=== PATIENT | male | born 1955 | race Caucasian/White ===

== ENCOUNTER 2023-03-15 09:10 | Inpatient (IN) | payer OTHER ==
[2023-03-15] VITALS (13 sets, daily range): BP systolic 128–160; BP diastolic 42–100
[~2023-03-15] VITALS: Ht 193 cm; Wt 134.5 kg
[2023-03-15 09:48] LABS: BASOPHILS ABSOLUTE AUTO 0.05 K/mm3 (0.00-0.23); BASOPHILS PERCENT AUTO 0 % (0-2); EOSINOPHILS ABSOLUTE AUTO 0.18 K/mm3 (0.00-0.68); EOSINOPHILS PERCENT AUTO 1 % (0-6); Hematocrit 32.7 % (37.0-53.0); Hemoglobin 9.9 g/dL (13.5-17.5); IMMATURE GRAN ABSOLUTE AUTO 0.08 K/mm3 (0.00-0.10); IMMATURE GRAN PERCENT AUTO 0 % (0-1); LYMPHOCYTES ABSOLUTE AUTO 0.83 K/mm3 (0.84-5.20); LYMPHOCYTES PERCENT AUTO 5 % (21-46); MONOCYTES ABSOLUTE AUTO 0.96 K/mm3 (0.16-1.47); MONOCYTES PERCENT AUTO 5 % (4-13); Mean Corpuscular HGB 22.3 pg (26.0-34.0); Mean Corpuscular HGB Conc 30.3 g/dL (31.5-36.5); Mean Corpuscular Volume 74 fL (80-100); Mean Platelet Volume 9.7 fL (9.1-12.4); NEUTROPHILS ABSOLUTE AUTO 15.98 K/mm3 (1.96-9.15); NEUTROPHILS PERCENT AUTO 88 % (41-73); Platelet Count 289 K/mm3 (150-400); RDW Coefficient Variation 19.1 % (11.7-14.2); RDW Standard Deviation 50.4 fL (35.1-46.3); Red Blood Cell Count 4.44 M/mm3 (4.30-5.90); White Blood Cell Count 18.08 K/mm3 (4.00-11.30)
[2023-03-15 10:17] LABS: Magnesium, Blood 1.6 mg/dL (1.6-2.4)
[2023-03-15 10:19] LABS: Albumin, Blood 3.4 g/dL (3.4-5.0); Albumin/Globulin Ratio 0.7 (0.8-1.8); Bilirubin, Total 0.2 mg/dL (0.1-1.0); Bun/Creatinine Ratio 29.4 (12.0-20.0); Calcium, Blood 8.9 mg/dL (8.5-10.1); Creatinine, Blood 1.09 mg/dL (0.60-1.20); Globulin, Blood 5.1 g/dL (2.2-4.0); Potassium, Blood 4.4 mmol/L (3.5-5.5); Total Protein, Blood 8.5 g/dL (6.4-8.2)
[2023-03-15 10:46] LABS: Source, Urine Clean Catch
[2023-03-15 10:49] LABS: Appearance, Urine Clear (Clear); Bilirubin, Urine Neg (Neg); Blood, Urine 1+ (Neg); Color, Urine Yellow (P-Yellow); Glucose Qualitative, Urine 2+ (Neg); Ketones, Urine Neg (Neg); Leukocyte Esterase, Urine Neg (Neg); Nitrite, Urine Neg (Neg); Protein, Urine 3+ (Neg); Urobilinogen, Urine NORM (Normal)
[2023-03-15 11:05] LABS: Bacteria Many /hpf; Squamous Epithelial Cells Not Seen /hpf (Few)
[2023-03-15] MEDS ORDERED: BACITRACIN ZIN1 EAC1 (17:50)
[2023-03-15] MEDS ORDERED: ATOR40TA PO (17:50)
[2023-03-15] MEDS ORDERED: ASPI81CH PO (17:50)
[2023-03-15] MEDS ORDERED: BISA5EC PO (17:51)
[2023-03-15] MEDS ORDERED: BISA10S PR (17:51)
[2023-03-15] MEDS ORDERED: CARV6.25 PO (17:53)
[2023-03-15] MEDS ORDERED: FURO20 PO (17:54)
[2023-03-15] MEDS ORDERED: GLIM4 PO (17:54)
[2023-03-15] MEDS ORDERED: DICLOFENAC SOD100 GM TP (17:54)
[2023-03-15] MEDS ORDERED: NOVOLIN 70100 UNIT/4 SC (17:56)
[2023-03-15] MEDS ORDERED: LACT PO (17:57)
[2023-03-15] MEDS ORDERED: LOSA50 PO (17:57)
[2023-03-15] MEDS ORDERED: MELA3 PO (17:57)
[2023-03-15] MEDS ORDERED: NARCAN4 M1 NS (17:58)
[2023-03-15] MEDS ORDERED: METF500 PO (17:58)
[2023-03-15] MEDS ORDERED: OXYC5 PO (17:58)
[2023-03-15] MEDS ORDERED: MIRALAX17 GM PO (17:58)
[2023-03-15] MEDS ORDERED: PREG150 PO (17:59)
[2023-03-15] MEDS ORDERED: SERT50 PO (18:00)
[2023-03-15] MEDS ORDERED: SENNA LAXATIVE8.6 MG PO (18:00)
[2023-03-15] MEDS ORDERED: SHINGRIX (18:01)
[2023-03-15] MEDS ORDERED: ALDACTONE25 MG PO (18:01)
[2023-03-15] MEDS ORDERED: TRAM50 PO (18:02)
[2023-03-15] MEDS ORDERED: ACET500 PO (18:02)
[2023-03-15] MEDS ORDERED: ALBU90OI INH (18:03)
[2023-03-16] VITALS (14 sets, daily range): BP systolic 88–134; BP diastolic 61–76
[2023-03-16 03:39] LABS: Hematocrit 29.8 % (37.0-53.0); Hemoglobin 8.8 g/dL (13.5-17.5); Mean Corpuscular HGB Conc 29.5 g/dL (31.5-36.5); Mean Corpuscular Volume 75 fL (80-100); Mean Platelet Volume 9.8 fL (9.1-12.4); Platelet Count 240 K/mm3 (150-400); RDW Coefficient Variation 19.3 % (11.7-14.2); RDW Standard Deviation 51.9 fL (35.1-46.3); White Blood Cell Count 23.73 K/mm3 (4.00-11.30)
[2023-03-16 04:16] LABS: Albumin, Blood 2.8 g/dL (3.4-5.0); Albumin/Globulin Ratio 0.6 (0.8-1.8); Bilirubin, Total 0.3 mg/dL (0.1-1.0); Calcium, Blood 8.1 mg/dL (8.5-10.1); Creatinine, Blood 1.32 mg/dL (0.60-1.20); Globulin, Blood 4.4 g/dL (2.2-4.0); Potassium, Blood 4.7 mmol/L (3.5-5.5); Total Protein, Blood 7.2 g/dL (6.4-8.2)
--- NOTE | 2023-03-16 06:29 | NUR ---
SHIFT SUMMARY A/Ox3-4 AND COOPERATIVE WITH CARE. ANSWERS QUESTIONS APPROPRIATELY AND ABLE TO MAKE HIS NEEDS KNOWN. CARDIAC, REMAINS IN ST-100'S WITH NO C/O CP OR PRESSURE T/O THE NIGHT. SBP HAS REMAINED STABLE T/O THE NIGHT RANGING 100-130'S. RESPIRATORY, MAINTAINS SPO2 >90% ON 1-2L VIA NC. DENIES SOB OR DYSPNEA WHILE AT REST. SOME INCREASED WORK OF BREATHING NOTED LAYING FLAT OR WITH EXERTION WHEN TURNING IN THE BED. GI/, CONTINUES TO BE INCONTINENT OF URINE. CONDOM CATH IN PLACE DRAINING YELLOW URINE TO GRAVITY. PT UNDERWENT I&D PROCEDURE ON RIGHT LOWER EXTREMITY STUMP. WOUND VAC IN PLACE WITH BLOODY OUTPUT. PT SPIKED 103.2 FEVER WHEN ARRIVING BACK TO PCU FROM SURGERY. FEVER HAS SINCE BEEN CONTROLLED VIA EMAR AND WITH COOLING THERAPY TO 99.9 (ORAL). ASSESSED PT FOR RISKS OF ANY IGNITION SOURCES WELL BEHAVIORS FOR INCREASED RISKS OF FIRE DANGER. PT EDUCATED ON COMMON SOURCES OF IGNITION WELL NEED TO KEEP A SAFE ENVIRONMENT. PT VOICED UNDERSTANDING. NO NEW ORDERS AT THIS TIME, WILL REPORT TO ONCOMING RNLiu DIAZ OF THIS NOTE
--- NOTE | 2023-03-16 10:45 | NUR ---
FIRST DOSE OF INFECT WAS ADMNISTERED. PT DENIES SOB, DIZZINESS, CHEST PAIN/PRESSURE, TROUBLE SWALLOWING, FACIAL/TONGUE SWELLING. PT TOLERATED WELL. PLAN TO START NEXT BAD IN HR PER EMAR.
--- NOTE | 2023-03-16 14:23 | NUR ---
PT A&OX4, COOPERATES WITH CARE, ABLE TO MAKE NEEDS KNOWN, ANSWERS QUESTIONS APPROPRIATELY. PT IS SLEEPY TODAY BUT EASILY AROUSED. PT ON 2L NC MAINTAINING 02 SATURATION ABOVE 93%, PT DENIES SOB. HR 80'S-110'S, BP STABLE, PT DENIES CHEST PAIN/PRESSURE. CONDOM CATH IN PLACE, PATENT DRAINING WITH GRAVITY. PT HAS HX OF R BKA & HAD I&D PERFORMED YESTERDAY DUE TO INFECTION, WOUND VAC IN PLACE. PTS ABDOMEN IS EXTREMELY DISTENDED AND FIRM, PT STATED THAT IS NORMAL FOR HIM. DURING REPORT DIRECTOR MATERNAL CHILD STATED PT HAD FEVER FOR THE MAJORITY OF LAST NIGHT. AROUND 1230 THIS AFTERNOON PT'S TEMPERATURE WENT UP TO 99.6, MEDICATED PER EMAR, AND TEMPERATURE CAME DOWN TO 98.0. PT COMPLAINED OF 7/10 PAIN AT BEGINNING OF SHIFT, MEDICATED PER EMAR, PT HAS BEEN SLEEPING THE MAJORITY OF THE DAY. PT RESTING IN BED, CALL LIGHT WITHIN REACH.
--- NOTE | 2023-03-16 16:04 | NUR ---
Pt states that he can't find his phone. He described it as a "crap phone". When I asked what he meant, he said it is a flip phone, "pay as you go", black in color. Room, closet, belongings and pt bed were searched to find it. His confirms that she spoke with him on his cell phone this morning around 0830 or 0900. Call to the dietary office to ask if phone was found. No answer, so message was left.
--- NOTE | 2023-03-16 18:07 | NUR ---
SHIFT SUMMARY NO ACUTE CHANGES, SEE PREVIOUS NOTE. PT JUST FINISHED EATING 100% OF HIS DINNER. PT CONTINUES TO MAINTAIN 02 SATURATION ABOVE 92% ON 2L NC, CONTINUES TO DENY SOB. PT CONTINUES TO BE A&OX4. BP STABLE, HR SR 80'S, PT CONTINUES TO DENY CHEST PAIN/PRESSURE. CONDOM CATH PATENT AND EMPTYING TO GRAVITY. PT SPOKE WITH HIS ON THE PHONE EARLIER. PT IS RESTING IN BED WITH CALL LIGHT WITHIN REACH.
[2023-03-17 01:48] VITALS: BP 113/69
--- NOTE | 2023-03-17 02:00 | NUR ---
PHYSICIAN COMMUNICATION CONTACTED [facility] PHYSICIAN, DR BALDERAS, NO NOTIFY HIM THAT THE PATIENT JUST HAD TWO BACK TO BACK RUNS OF SVT TOTALLING ABOUT 3 MINUTES BETWEEN THEM. PATIENT ASYMPTOMATIC WITH NO CHANGES IN VITAL SIGNS. ALSO INFORMED HIM THAT THE PATIENT WAS REQUESTING SOMETHING TO HELP HIM SLEEP. DR BALDERAS ORDERED 6 MG MELATONIN.
[2023-03-17 03:36] LABS: BASOPHILS ABSOLUTE AUTO 0.04 K/mm3 (0.00-0.23); BASOPHILS PERCENT AUTO 0 % (0-2); EOSINOPHILS ABSOLUTE AUTO 0.02 K/mm3 (0.00-0.68); EOSINOPHILS PERCENT AUTO 0 % (0-6); Hemoglobin 7.6 g/dL (13.5-17.5); IMMATURE GRAN ABSOLUTE AUTO 0.16 K/mm3 (0.00-0.10); IMMATURE GRAN PERCENT AUTO 1 % (0-1); LYMPHOCYTES ABSOLUTE AUTO 1.22 K/mm3 (0.84-5.20); LYMPHOCYTES PERCENT AUTO 6 % (21-46); MONOCYTES ABSOLUTE AUTO 1.55 K/mm3 (0.16-1.47); MONOCYTES PERCENT AUTO 8 % (4-13); Mean Corpuscular HGB 22.4 pg (26.0-34.0); Mean Corpuscular HGB Conc 30.4 g/dL (31.5-36.5); Mean Corpuscular Volume 74 fL (80-100); Mean Platelet Volume 9.7 fL (9.1-12.4); NEUTROPHILS ABSOLUTE AUTO 16.19 K/mm3 (1.96-9.15); NEUTROPHILS PERCENT AUTO 84 % (41-73); Platelet Count 195 K/mm3 (150-400); RDW Coefficient Variation 19.6 % (11.7-14.2); RDW Standard Deviation 52.5 fL (35.1-46.3); White Blood Cell Count 19.18 K/mm3 (4.00-11.30)
[2023-03-17 03:52] VITALS: BP 108/72
[2023-03-17 04:01] LABS: Magnesium, Blood 2.1 mg/dL (1.6-2.4)
[2023-03-17 04:05] LABS: Anion Gap 5 mmol/L (6-16); Blood Urea Nitrogen 39 mg/dL (8-24); Bun/Creatinine Ratio 26.7 (12.0-20.0); CO2, Blood 24 mmol/L (21-32); Calcium, Blood 7.5 mg/dL (8.5-10.1); Chloride, Blood 106 mmol/L (98-108); Creatinine, Blood 1.46 mg/dL (0.60-1.20); Glomerular Filtration Rate 52 (60-); Glucose, Blood 337 mg/dL (70-99); Potassium, Blood 4.5 mmol/L (3.5-5.5); Sodium, Blood 135 mmol/L (136-145); Vancomycin, Trough 20.3 ug/mL (5.0-10.0)
--- NOTE | 2023-03-17 06:44 | NUR ---
SHIFT SUMMARY PATIENT ALERT AND ORIENTED X4. CONTINUES TO GO IN AND OUT OF SUSTAINED SVT. OBTAINED AN EKG PER DR BALDERAS AND RELAYED THAT IT READ JUNCTIONAL TACHYCARDIA IN THE 130'S. PATIENT CONTINUES TO BE ASYMPTOMATIC, BLOOD PRESSURE STABLE. LONGEST RUN OF SVT THIS MORNING LASTED ABOUT 20 MINUTES. WILL CONTINUE TO MONITOR. CALL LIGHT WITHIN REACH.
[2023-03-17 07:37] VITALS: BP 112/79
--- NOTE | 2023-03-17 07:49 | NUR ---
Dr. Richter was here to see the patient. Yesterday's bumped WBC unsuprising he said due to the surgery 1 day prior. Today it is decreased, but ongoing monitoring to see if an AKA surgery will be indicated later. He will put in the orders for the director of catering to change the wound vac dressing tomorrow. CBG better controlled today, less than 300 this morning. No c/o pain except for headache this morning; he was given Tylenol.
--- NOTE | 2023-03-17 07:53 | NUR ---
PT AWAKE, ALERT, AND ORIENTED X 4 THIS MORNING. PT STATED 6/10 PAIN, MEDICATED PER EMAR. BP STABLE, PT DENIES CHEST PAIN/PRESSURE, HR 80'S SR. PT ON 3L NC MAINTAINING O2 SAT ABOVE 92%, PT DENIES SOB. GONZALEZ CATHETER IN PLACE DRAINING YELLOW URINE TO GRAVIY. IN TO SPEAK WITH PT REGARDING I&D SITE, STATED WOUND VAC WILL STAY IN PLACE TODAY, GET CHANGED TMR, THEN EVERY OTHER DAY AFTER THAT. PT SPOKE WITH HIS ON THE PHONE THIS MORNING. PT EATING BREAKFAST AND WATCHING TV, CALL LIGHT WITHIN REACH.
[2023-03-17 11:16] VITALS: BP 96/67
[2023-03-17 15:21] VITALS: BP 117/72
--- NOTE | 2023-03-17 18:22 | NUR ---
SHIFT SUMMARY PT WORKED WITH PHYSICAL THERAPY TODAY AND HAS BEEN UP IN CHAIR UNTIL 1829. 1 PERSON ASSIST TO AND FROM CHAIR, 2-3 PERSON ASSIST TO COMMODE PER PHYSICAL THERAPY. PT TRANSFERRED WELL FROM BED TO CHAIR AT 1829, PT WILL TELL YOU HOW HE NEEDS THE CHAIR POSITIONED. PT IS ON 3L NC MAINTAINING 02 SATURATION ABOVE 93%, PT DENIES SOB. HR 70'S-80'S, BP STABLE, PT DENIES CHEST PAIN/PRESSURE. CONDOM CATH IN PLACE AND YELLOW URINE FLOWING TO GRAVITY. WOUND VAC IN PLACE AND SEROSANGUINOUS DRAINAGE DRAINING. PT RESTING IN BED, CALL LIGHT WITHIN REACH.
[2023-03-17 19:44] VITALS: BP 120/70
[2023-03-18] VITALS (8 sets, daily range): BP systolic 120–137; BP diastolic 67–87
[2023-03-18 03:43] LABS: BASOPHILS ABSOLUTE AUTO 0.04 K/mm3 (0.00-0.23); BASOPHILS PERCENT AUTO 0 % (0-2); EOSINOPHILS ABSOLUTE AUTO 0.12 K/mm3 (0.00-0.68); EOSINOPHILS PERCENT AUTO 1 % (0-6); Hematocrit 28.9 % (37.0-53.0); Hemoglobin 8.7 g/dL (13.5-17.5); IMMATURE GRAN ABSOLUTE AUTO 0.09 K/mm3 (0.00-0.10); IMMATURE GRAN PERCENT AUTO 1 % (0-1); LYMPHOCYTES ABSOLUTE AUTO 1.05 K/mm3 (0.84-5.20); LYMPHOCYTES PERCENT AUTO 7 % (21-46); MONOCYTES ABSOLUTE AUTO 1.28 K/mm3 (0.16-1.47); MONOCYTES PERCENT AUTO 9 % (4-13); Mean Corpuscular HGB 22.3 pg (26.0-34.0); Mean Corpuscular HGB Conc 30.1 g/dL (31.5-36.5); Mean Corpuscular Volume 74 fL (80-100); Mean Platelet Volume 10.4 fL (9.1-12.4); NEUTROPHILS ABSOLUTE AUTO 12.14 K/mm3 (1.96-9.15); NEUTROPHILS PERCENT AUTO 83 % (41-73); NRBC ABSOLUTE 0.02 K/mm3 (0.00-0.02); NRBC Auto 0.1 /100 WBC (0.0-0.2); Platelet Count 232 K/mm3 (150-400); RDW Coefficient Variation 19.8 % (11.7-14.2); RDW Standard Deviation 52.7 fL (35.1-46.3); White Blood Cell Count 14.72 K/mm3 (4.00-11.30)
[2023-03-18 04:31] LABS: Albumin, Blood 2.5 g/dL (3.4-5.0); Albumin/Globulin Ratio 0.5 (0.8-1.8); Bilirubin, Total 0.3 mg/dL (0.1-1.0); Bun/Creatinine Ratio 28.9 (12.0-20.0); Calcium, Blood 8.4 mg/dL (8.5-10.1); Creatinine, Blood 1.14 mg/dL (0.60-1.20); Globulin, Blood 4.9 g/dL (2.2-4.0); Magnesium, Blood 2.2 mg/dL (1.6-2.4); Potassium, Blood 4.7 mmol/L (3.5-5.5); Total Protein, Blood 7.4 g/dL (6.4-8.2)
--- NOTE | 2023-03-18 05:29 | NUR ---
SHIFT SUMMARY ASSUMED CARE OF PT AT 1900. PT IS A/OX4. HEART SOUNDS REGULAR.WHERE WERE FINE CRACKLES IN LUNG BASES. PT WENT FROM NEEDING 3L NC TO 8L HIGHFLOW. PT UNABLE TO TOLERATE HEAD UP DUE TO BACK PAIN, MEDICATED PER EMAR AND HEAT ADMINISTERED. PT HAS SOME RELIEF. PT WAS A 2P ASSIST TO BSC WITH MODERATE ASSISTANCE. PT HAD HARD BM, STILL COMPLAINING OF EXTENDED ABD BUT BETTER AFTER BM. PT R BKA WAS DRESSED WITH NO DRAINAGE. PT HAS SMALL HEALING WOULD ON L SECOND TOE THAT HE STATES HE HAS HAD FOR A WHILE. PT C/O PAIN AT BOTTOM OF CHEST SCAR FROM PREVIOUS SURGERY.
--- NOTE | 2023-03-18 09:52 | NUR ---
Call from the OR staff to let know that the pt will be going for an AKA tomorrow at [address] Hogan. Request made for the surgeon to please come and discuss this plan with the patient. The pt is upset because he has not had this discussion yet; he was thinking that there would only be conservative management, and only possibly an AKA at some time in the future.
--- NOTE | 2023-03-18 10:23 | NUR ---
PT ALERT AND ORIENTED X 4, ABLE TO MAKE NEEDS KNOWN, CONFUSED AT TIMES. PT STATED THIS MORNING THAT HE DIDN'T SLEEP WELL LAST NIGHT AND WOULD LIKE TO GET SOME REST TODAY. MD WAS IN TO SPEAK WITH PATIENT. YESTERDAY SURGEON DISCUSSED WITH PT POSSIBILITY OF ABOVE THE KNEE AMPUTATION AND PROS AND CONS, PT STATED UNDERSTNDING. AT THIS TIME, PT IS DUE TO HAVE AN ABOVE THE KNEE AMPUTATION TOMORROW. IT HAS BEEN REQUESTED THAT SURGEON COME SPEAK WITH PATIENT. LOADER STATED THEY HAD TO TITRATE PTS OXYGEN USE UP TO 8L HIGH FLOW NC TO MAINTAIN O2 SATURATION ABOVE 93%, PT STILL ON SAID SETTINGS AND TOLERATING WELL MAINTAINING O2 SATURATION ABOVE 93%. WOUND VAC IN PLACE AND SETTINGS PER ORDER, SEROSANGUINEOUS DRAINAGE. WOUND CARE ORDER PLACED. CONDOM CATH IN PLACE AND DRAINING YELLOW URINE WITH GRAVITY. IV TO R UPPER ARM & L FOREARM PATENT, FLUSHED AND SALINE LOCKED WHEN NOT INFUSING. PT HAS SPOKE WITH HIS A FEW TIMES ON THE PHONE TODAY. PHYSICAL THERAPY WAS BY TO WORK WITH PT, AND PT REFUSED. PT RESTING IN BED, CALL LIGHT WITHIN REACH.
--- NOTE | 2023-03-18 10:34 | NUR ---
PT STATED CONCERNS REGARDING [facility]IENT THERE BEFORE SENT HERE VIA AMBULANCE. I CALLED THE AOD AT THE [place], HIS NAME IS CHIQUITA, AND HE GAVE ME A PHONE NUMBER AND EXTENSION THAT PT CAN CALL TO SPEAK WITH A CHARGE NURSE ON THE UNIT.
--- NOTE | 2023-03-18 11:51 | NUR ---
SURGEON WAS BY TO SPEAK WITH PT REGARDING ABOVE THE KNEE AMPUTATION TOMORROW. PT IN HIS ROOM HAVING ECHO PERFORMED NOW.
--- NOTE | 2023-03-18 15:14 | NUR ---
APPROXIMATELY 1430 PT STARTED TO HAVE 7/10 ABDOMINAL PN, NAUSEA, & AUDIBLE WHEEZING. PT WAS MEDICATED PER EMAR. HAD TO INCREASE OXYGEN TO 12L TO MAINTAIN O2 SATURATION ABOVE 92%, FINE CRACKLES AUSCULTATED IN BASES OF LUNGS. GOT PT UP TO BEDSIDE COMMODE, HE PASSED GAS AND STATED HIS ABDOMINAL NAUSEA AND PAIN DECREASED TO 5/10. PT IN RECLINER, CONDOM CATHETER REPLACED, 900ML OUTPUT. CALL PLACED TO MD, ORDERED 1V CHEST XRAY, 40MG IV LASIX NOW, AND 40MG IV LASIX DAILY, PT MEDICATED PER ORDER. WAITING FOR PT TO GET CHEST XRAY. PT STATED HE DOES NOT HAVE ANY SOB, CHEST PAIN/PRESSURE. PT IN RECLINER WATCHING TV, CALL LIGHT WITHIN REACH.
--- NOTE | 2023-03-18 17:18 | NUR ---
SHIFT SUMMARY SEE PREVIOUS NOTES. PT NOW ON 3L HIGH FLOW NC MAINTAINING O2 SATURATION ABOVE 92%. PT DENIES SOB, NO AUDIBLE WHEEZES. PTS BP IS STABLE, PT DENIES CHEST PAIN/PRESSURE, HR 70S-80S. PT CONTINUES TO BE ALERT AND ORIENTED X 4. PT HAD BOWEL MOVEMENT AFTER SUPPOSITORY WAS GIVEN. PT STATED ABDOMINAL PAIN IS DOWN TO 3/10. PT STATED HE FEELS A LOT BETTER. EARLIER TODAY [facility], PER PT REQUEST. PT SAID THEY TOLD HIM THEY WOULD LOCK UP HIS WALLET AND KEEP THE REST OF HIS BELONGINGS SAFE. PT STILL IN RECLINER WATCHING TV. AFTER LASIX WAS ADMINISTERED PT SO FAR HAS HAD 400 OUT PUT ALONG WITH UNMEASURED SMALL AMOUNT ON THE FLOOR. NEW CONDOM CATHETER PLACED, AND YELLOW URINE FLOWING WITH GRAVITY. PT IN RECLINER, WATCHING TV, EATING DINNER, CALL LIGHT WITHIN REACH.
[2023-03-19] VITALS (19 sets, daily range): BP systolic 94–165; BP diastolic 74–110
--- NOTE | 2023-03-19 02:26 | NUR ---
UPDATE THIS RN NOTIFIED BY [employer] THAT PT O2 SATS IN THE 70'S. THIS RN TO PT ROOM. PT SLEEPING WITH HOB AT 30. PT HAD MULTIPLE APNEIC EPISODES WHILE THIS RN WAS IN ROOM, SATS DOWN TO 60'S. O2 INCREASED TO 5L AND PT AWAKEN BY THIS RN TO INSTRUCT PT TO TAKE DEEP BREATHS. SATS INCREASED TO 90'S AFTER A FEW BREATHS. PT REMAINED ON 5L.
[2023-03-19 04:12] LABS: Hematocrit 26.7 % (37.0-53.0); Hemoglobin 7.9 g/dL (13.5-17.5); Mean Corpuscular HGB 21.9 pg (26.0-34.0); Mean Corpuscular HGB Conc 29.6 g/dL (31.5-36.5); Mean Corpuscular Volume 74 fL (80-100); Mean Platelet Volume 10.3 fL (9.1-12.4); NRBC ABSOLUTE 0.05 K/mm3 (0.00-0.02); NRBC Auto 0.4 /100 WBC (0.0-0.2); Platelet Count 230 K/mm3 (150-400); RDW Coefficient Variation 19.8 % (11.7-14.2); RDW Standard Deviation 52.7 fL (35.1-46.3); White Blood Cell Count 11.29 K/mm3 (4.00-11.30)
[2023-03-19 04:39] LABS: Bun/Creatinine Ratio 25.5 (12.0-20.0); Calcium, Blood 8.1 mg/dL (8.5-10.1); Creatinine, Blood 1.1 mg/dL (0.60-1.20); Potassium, Blood 4.3 mmol/L (3.5-5.5)
[2023-03-19 04:55] LABS: BAND PERCENT MAN 12 % (0-8); BASOPHILS PERCENT MAN 0 % (0-2); EOSINOPHILS ABSOLUTE MAN 0.22 K/mm3 (0.00-0.68); EOSINOPHILS PERCENT MAN 2 % (0-6); LYMPHOCYTES ABSOLUTE MAN 1.12 K/mm3 (0.84-5.20); LYMPHOCYTES PERCENT MAN 10 % (21-46); MONOCYTES ABSOLUTE MAN 1.12 K/mm3 (0.16-1.47); MONOCYTES PERCENT MAN 10 % (4-13); SEG NEUTROPHILS PERCENT MAN 66 % (41-73); TOTAL CELLS COUNTED 100
--- NOTE | 2023-03-19 05:01 | NUR ---
SHIFT SUMMARY PT A/OX4 AND COOPERATIVE OF MOST CARE. PT REFUSING SOME TURNS IN BED, STATES "IT HURTS MY HIPS." VSS THROUGHOUT SHIFT WITH O2 SATS IN THE 90'S ON 3L NC. PT HAD APNEIC EPISODES WHILE SLEEPING, SATS DROPPED TO 70-80'S, SEE PREVIOUS NOTES. NO REPORT OF CHEST PAIN/PRESSURE THROUGHOUT SHIFT. NO REPORT OF SPB/DYSPNEA THROUGHOUT SHIFT. CONDOM CATH IN PLACE AT BEGINNING OF SHIFT. CONDOM CATH REPLACED DUE TO LEAKING. PT NPO AT MIDNIGHT. WOUND VAC REAMINS IN PLACE OF RIGHT BKA. PT RESTED FOR MOST OF SHIFT.
--- NOTE | 2023-03-19 08:26 | NUR ---
UPDATE PT TAKEN TO DAY SURGERY. WILL AWAIT RETURN
--- NOTE | 2023-03-19 12:00 | NUR ---
UPDATE PT RETURNED TO ROOM FROM PACU. PT AWAKE AND ALERT. PT COMPLAINING OF PAIN TO RIGHT AKA AT 8/10. PT MEDICATED PER EMAR. PT DIAPHORETIC AND BED BATH PROVIDED. CONDOM CATH IN PLACE. PT REPOSITIONED FOR COMFORT. PT'S DAUGHTER CALLED AND UPDATED HE REQUESTED. VS STABLE. PT ON 3L NC AT THIS TIME. WILL CONTINUE TO MONITOR CLOSELY
--- NOTE | 2023-03-19 16:57 | NUR ---
UPDATE DR. CARREON CALLED AND UPDATED ON POSITIVE BLOOD CULTURES AND BLOOD SUGAR OF 409. ORDERS TO REDRAW BLOOD SUGAR IN 1 HOUR.
--- NOTE | 2023-03-19 17:56 | NUR ---
SHIFT SUMMARY PT REMAINS ALERT AND ORIENTED. VS STABLE. PT CONTINUES TO COMPLAIN OF PAIN TO RIGHT AKA. ICE APPLIED AND ELEVATED ON PILLOW. PT MEDICATED PER ORDERS. PT REPOSITIONED Q2H. CONDOM CATH STILL IN PLACE. WILL CONTINUE TO MONITOR AND REPORT TO ONCOMING RN
--- NOTE | 2023-03-19 21:02 | NUR ---
CONTACTED FOR BLOOD SUGAR OF 420 AT 2056. INSTRUCTED THIS RN TO GIVE SCHEDULED DOSE OF SHORT AND LONG ACTING ALONG WITH AND ADDITIONAL 5 UNITS SHORT ACTING. RECHECK BLOOD SUGAR 1 HOUR AFTER ADMINISTERING.
[2023-03-20] VITALS (8 sets, daily range): BP systolic 128–172; BP diastolic 66–145
[2023-03-20 04:14] LABS: BASOPHILS ABSOLUTE AUTO 0.03 K/mm3 (0.00-0.23); BASOPHILS PERCENT AUTO 0 % (0-2); EOSINOPHILS ABSOLUTE AUTO 0.01 K/mm3 (0.00-0.68); EOSINOPHILS PERCENT AUTO 0 % (0-6); Hemoglobin 6.9 g/dL (13.5-17.5); IMMATURE GRAN PERCENT AUTO 4 % (0-1); LYMPHOCYTES PERCENT AUTO 8 % (21-46); MONOCYTES ABSOLUTE AUTO 0.93 K/mm3 (0.16-1.47); MONOCYTES PERCENT AUTO 8 % (4-13); Mean Corpuscular HGB 22.3 pg (26.0-34.0); Mean Corpuscular Volume 74 fL (80-100); Mean Platelet Volume 10.6 fL (9.1-12.4); NEUTROPHILS ABSOLUTE AUTO 9.17 K/mm3 (1.96-9.15); NEUTROPHILS PERCENT AUTO 79 % (41-73); NRBC ABSOLUTE 0.15 K/mm3 (0.00-0.02); NRBC Auto 1.3 /100 WBC (0.0-0.2); Platelet Count 269 K/mm3 (150-400); RDW Standard Deviation 53.1 fL (35.1-46.3); White Blood Cell Count 11.54 K/mm3 (4.00-11.30)
[2023-03-20 04:33] LABS: C-REACTIVE PROTEIN, EXT RANGE 8.62 mg/dL (0.000-0.300); Calcium, Blood 8.2 mg/dL (8.5-10.1); Creatinine, Blood 1.1 mg/dL (0.60-1.20); Magnesium, Blood 2.2 mg/dL (1.6-2.4); Potassium, Blood 5.2 mmol/L (3.5-5.5)
--- NOTE | 2023-03-20 05:13 | NUR ---
SHIFT SUMMARY PT A/OX 4 AND COOPERATIVE OF CARE. PT ABLE TO EXPRESS NEEDS AND CALLS APPROPIATE. VSS THROUGHOUT SHIFT WITH O2 SATS IN THE 90'S ON 3L NC. NO REPORT OF CHEST PAIN/PRESSURE THROUGHOUT SHIFT. NO REPORT OF SOB THROUGHOUT SHIFT. PT REPORTED PAIN TO RIGHT LOWER STUMP, PT POST RIGHT AKA. PT CBG'S ELVEATED DURING NOC SHIFT, ALERTED OF SUGARS IN THE 300-400. ADDITIONAL INSULIN ORDERED AND GIVEN DURING NIGHT. PT HGB AT 6.9 THIS MORNING, NOTIFIED. 1 UNIT PRBC ORDERED.
[2023-03-20 17:36] LABS: Hematocrit 24.5 % (37.0-53.0); Hemoglobin 7.7 g/dL (13.5-17.5)
--- NOTE | 2023-03-20 17:38 | NUR ---
SHIFT SUMMARY PT REMAINS ALERT AND ORIENTED. BP STABLE. PT TITRATED TO ROOM AIR WHILE AWAKE, BUT DESATURATED TO 60'S WHILE ASLEEP. DR. CARREON NOTIFIED AND OVERNIGHT OXIMETRY ORDERED. CBG HAVE BEEN HIGH THIS SHIFT AND DR. CARREON HAS CHANGED INSULIN ORDERS. PT UP TO BSC THIS SHIFT. PT COMPLAINS OF PAIN TO RIGHT AKA, BUT STATES IT IS IMPROVED SINCE YESTERDAY. STUMP ELEVATED ON PILLOWS. PT REPOSITIONED Q2H AND MORE OFTEN NEEDED. ICE APPLIED REQUESTED. WILL CONTINUE TO MONITOR AND REPORT TO ONCOMING RN
[2023-03-21 05:00] VITALS: BP 129/70
[2023-03-21 07:44] LABS: Hematocrit 25.8 % (37.0-53.0); Hemoglobin 7.8 g/dL (13.5-17.5); Mean Corpuscular HGB 23.1 pg (26.0-34.0); Mean Corpuscular HGB Conc 30.2 g/dL (31.5-36.5); Mean Corpuscular Volume 76 fL (80-100); Mean Platelet Volume 10.1 fL (9.1-12.4); NRBC ABSOLUTE 0.23 K/mm3 (0.00-0.02); NRBC Auto 1.6 /100 WBC (0.0-0.2); Platelet Count 322 K/mm3 (150-400); RDW Coefficient Variation 20.3 % (11.7-14.2); RDW Standard Deviation 54.3 fL (35.1-46.3); Red Blood Cell Count 3.38 M/mm3 (4.30-5.90); White Blood Cell Count 14.83 K/mm3 (4.00-11.30)
[2023-03-21 08:09] LABS: Albumin, Blood 2.4 g/dL (3.4-5.0); Albumin/Globulin Ratio 0.5 (0.8-1.8); Bilirubin, Total 0.1 mg/dL (0.1-1.0); Bun/Creatinine Ratio 23.4 (12.0-20.0); Calcium, Blood 8.6 mg/dL (8.5-10.1); Creatinine, Blood 0.98 mg/dL (0.60-1.20); Globulin, Blood 4.5 g/dL (2.2-4.0); Total Protein, Blood 6.9 g/dL (6.4-8.2)
[2023-03-21 08:10] VITALS: BP 156/85
[2023-03-21 08:11] LABS: BAND PERCENT MAN 2 % (0-8); BASOPHILS PERCENT MAN 0 % (0-2); EOSINOPHILS ABSOLUTE MAN 0.44 K/mm3 (0.00-0.68); EOSINOPHILS PERCENT MAN 3 % (0-6); LYMPHOCYTES ABSOLUTE MAN 1.18 K/mm3 (0.84-5.20); LYMPHOCYTES PERCENT MAN 8 % (21-46); METAMYELOCYTE ABSOLUTE MAN 0.14 K/mm3 (0.00-0.00); METAMYELOCYTE PERCENT MAN 1 % (0-0); MONOCYTES ABSOLUTE MAN 0.44 K/mm3 (0.16-1.47); MONOCYTES PERCENT MAN 3 % (4-13); MYELOCYTE ABSOLUTE MAN 0.14 K/mm3 (0.00-0.00); MYELOCYTE PERCENT MAN 1 % (0-0); NEUTROPHILS ABSOLUTE MAN 12.45 K/mm3 (1.96-9.15); SEG NEUTROPHILS PERCENT MAN 82 % (41-73); TOTAL CELLS COUNTED 100
[2023-03-21 15:35] VITALS: BP 143/82
[2023-03-21 16:55] LABS: SARS-Cov-2 (COVID-19) PCR, MMC NEGATIVE (NEGATIVE)
--- NOTE | 2023-03-21 17:29 | NUR ---
SHIFT SUMMARY PT REMAINS ALERT AND ORIENTED. BP STABLE. O2 SATS REMAIN ABOVE 90% ON RA WHILE PT IS AWAKE. PT PLACED ON 3L NC WHILE SLEEPING. PT COMPLAINS OF PAIN AT TIMES AND MEDICATED PER EMAR. PT UP TO RECLINER FOR DINNER. CONDOM CATH IN PLACE FOR INCONTINENCE. [facility] WILL CONTINUE TO MONITOR AND REPORT TO ONCOMING RN
[2023-03-21 19:35] VITALS: BP 136/75
[2023-03-21 23:15] VITALS: BP 126/82
[2023-03-22 03:49] VITALS: BP 114/98
[2023-03-22 04:11] LABS: Hematocrit 25.7 % (37.0-53.0); Hemoglobin 7.9 g/dL (13.5-17.5); Mean Corpuscular HGB 23.6 pg (26.0-34.0); Mean Corpuscular HGB Conc 30.7 g/dL (31.5-36.5); Mean Corpuscular Volume 77 fL (80-100); Mean Platelet Volume 9.9 fL (9.1-12.4); NRBC ABSOLUTE 0.32 K/mm3 (0.00-0.02); NRBC Auto 2.7 /100 WBC (0.0-0.2); Platelet Count 318 K/mm3 (150-400); RDW Coefficient Variation 21.3 % (11.7-14.2); RDW Standard Deviation 54.6 fL (35.1-46.3); Red Blood Cell Count 3.35 M/mm3 (4.30-5.90); White Blood Cell Count 11.69 K/mm3 (4.00-11.30)
[2023-03-22 04:38] LABS: Bun/Creatinine Ratio 25.1 (12.0-20.0); Calcium, Blood 8.6 mg/dL (8.5-10.1); Potassium, Blood 4.7 mmol/L (3.5-5.5)
[2023-03-22 05:37] LABS: BAND PERCENT MAN 1 % (0-8); BASOPHILS PERCENT MAN 0 % (0-2); EOSINOPHILS ABSOLUTE MAN 0.11 K/mm3 (0.00-0.68); EOSINOPHILS PERCENT MAN 1 % (0-6); LYMPHOCYTES ABSOLUTE MAN 2.33 K/mm3 (0.84-5.20); LYMPHOCYTES PERCENT MAN 20 % (21-46); METAMYELOCYTE ABSOLUTE MAN 0.11 K/mm3 (0.00-0.00); METAMYELOCYTE PERCENT MAN 1 % (0-0); MONOCYTES ABSOLUTE MAN 0.58 K/mm3 (0.16-1.47); MONOCYTES PERCENT MAN 5 % (4-13); MYELOCYTE PERCENT MAN 6 % (0-0); NEUTROPHILS ABSOLUTE MAN 7.83 K/mm3 (1.96-9.15); SEG NEUTROPHILS PERCENT MAN 66 % (41-73); TOTAL CELLS COUNTED 100
--- NOTE | 2023-03-22 06:42 | NUR ---
SHIFT SUMMARY PATIENT ALERT AND ORIENTED X4. MEDICATED PER EMAR FOR PAIN. ON ROOM AIR WHILE AWAKE AND 3 LITERS O2 WHEN SLEEPING, NO COMPLAINTS OF SHORTNESS OF BREATH. VITAL SIGNS STABLE. NO ACUTE ISSUES NOTED OVERNIGHT. WILL CONTINUE TO MONITOR. CALL LIGHT WITHIN REACH.
--- NOTE | 2023-03-22 07:06 | NUR ---
Bedside shift report. Pt is awake, alert and oriented. States that he is having some pain in his AKA and would like pain medication.
[2023-03-22 07:38] VITALS: BP 138/81
--- NOTE | 2023-03-22 09:19 | NUR ---
Telephone report was called to MARIO Rogers receiving at the [facility]. Estimated potato picker time is 1030 this morming.
[2023-03-22] MEDS ORDERED: Lovenox40 MG/0.4 PO (09:31)
[2023-03-22] MEDS ORDERED: Calcium Carbon500 MG PO (09:31)
[2023-03-22] MEDS ORDERED: Norco 10-325 T1 EACH PO (09:32)
[2023-03-22] MEDS ORDERED: INSULIN GL100 UNIT/2 SC (09:34)
[2023-03-22] MEDS ORDERED: HUMALOG KW100 UNIT/1 SC ×2 (09:34→09:35)
[2023-03-22] MEDS ORDERED: LEVO750 PO (09:35)
== END 2023-03-22 10:30 | DRG 474 ==
LOC: ER 09:10 → PCU 15:06
PROVIDERS: Internal Medicine; Orthopaedic Surgery; Student in an Organized Health Care Education/Training Program; ADMIT Internal Medicine
PROC: 0HBKXZZ Excision of Right Lower Leg Skin, External Approach (ICD-10-PCS; principal; 2023-03-15 17:45)
PROC: 30233N1 Transfusion of Nonautologous Red Blood Cells into Peripheral Vein, Percutaneous Approach (ICD-10-PCS; 2023-03-17)
PROC: 0Y6C0Z3 Detachment at Right Upper Leg, Low, Open Approach (ICD-10-PCS; 2023-03-19)
DX: T87.43 Infection of amputation stump, right lower extremity (principal); A41.81 Sepsis due to Enterococcus; R65.20 Severe sepsis without septic shock; N39.0 Urinary tract infection, site not specified; N17.9 Acute kidney failure, unspecified; I13.0 Hypertensive heart and chronic kidney disease with heart failure and stage 1 through stage 4 chronic kidney disease, or unspecified chronic kidney disease; I50.32 Chronic diastolic (congestive) heart failure; D62 Acute posthemorrhagic anemia; I42.6 Alcoholic cardiomyopathy; L03.115 Cellulitis of right lower limb; M86.8X8 Other osteomyelitis, other site; N18.30 Chronic kidney disease, stage 3 unspecified; E11.22 Type 2 diabetes mellitus with diabetic chronic kidney disease; I25.10 Atherosclerotic heart disease of native coronary artery without angina pectoris; D50.9 Iron deficiency anemia, unspecified; D63.1 Anemia in chronic kidney disease; K59.09 Other constipation; E11.69 Type 2 diabetes mellitus with other specified complication; Z20.822 Contact with and (suspected) exposure to COVID-19; E78.5 Hyperlipidemia, unspecified; Z79.899 Other long term (current) drug therapy; Z95.1 Presence of aortocoronary bypass graft; Z79.01 Long term (current) use of anticoagulants; Z79.4 Long term (current) use of insulin; Z86.73 Personal history of transient ischemic attack (TIA), and cerebral infarction without residual deficits; Z79.84 Long term (current) use of oral hypoglycemic drugs
CPT/HCPCS: 36415; 36430; 71045; 73551; 73701; 74018; 80048; 80053; 80202; 81001; 82728; 82947; 83036; 83540; 83550; 83605; 83735; 84443; 85014; 85018; 85025; 85027; 85651; 86140; 86850; 86900; 86901; 86920; 87040; 87077; 87086; 87186; 88307; 88311; 93005; 93010; 93306; 94760; 94762; 96361-59; 96365-59; 96366-59; 96367-59; 96375-59; 97110; 97162; 97165; 97530; 99285-25; A9270; C1751; J0290; J0690; J1100; J1170; J1650; J1750; J1815; J1885; J1940; J2185; J2270; J2405; J2543; J2704; J2916; J3010; J3370; J3475; J3480; J7030; J7040; J7050; J7120; P9016; Q9967; U0002